=== PATIENT | female | born 1955 | race Caucasian/White ===

== ENCOUNTER 2024-11-15 16:32 | Inpatient (IN) | payer MEDICARE ==
[2024-11-15] MEDS: MORPHINE SULFATE 4 MG/ML SYRINGE IVP STA (19:03)
[2024-11-15] MEDS ORDERED: NALOXONE 0.4 MG/ML 1 ML VIAL IV PRN (20:23)
--- NOTE | 2024-11-15 20:23 | ED ---
Lower Extremity Injury HPI - General Chief Complaint: Extremity Injury, Lower Stated Complaint: Fractured right leg Time Seen by Provider: 11/15/24 16:40 Source: EMS Mode of arrival: EMS - History of Present Illness Initial Comments: 69-year-old female with past medical history of COPD, arthritis who presents emergency department as a transfer from [facility]. Patient sustained a fall 2 days ago. She has been having right hip pain. She has been able to ambulate however its painful. She went into [facility] and had an x-ray completed which demonstrated no fracture. Due to the significance of the pain they did complete a CT. Demonstrates that the patient has a nondisplaced occult fracture of the greater trochanter. Patient is having difficulty with ambulation and therefore they wanted to get a faster orthopedic consult and therefore transported the patient here. She admits to pain with movement. She was given 4 mg of morphine for pain control which was helpful. She did have some knee pain and x-ray was performed of the knee which demonstrates no fracture. Patient has been ambulating with a 4 post cane. She denies hitting her head. No other injuries from the fall. Patient does not take any blood thinners. - Related Data Home Medications Medication Instructions Recorded Confirmed ALPRAZolam [Xanax] 0.5 mg PO TID 11/15/24 11/15/24 Acetaminophen-Codeine 300-30mg 1 tab PO BID@1300,1700 11/15/24 11/15/24 [Tylenol w/codeine #3] Acetaminophen-Codeine 300-30mg 2 tab PO DAILY 11/15/24 11/15/24 [Tylenol w/codeine #3] Fluticasone Propion/Salmeterol 1 puff INHALATION RT-BID 11/15/24 11/15/24 [Wixela 250-50 Inhub] Mometasone Furoate [Nasonex 50 MCG] 2 spr EA NOSTRIL DAILY 11/15/24 11/15/24 Allergies Allergy/AdvReac Type Severity Reaction Status Date / Time No Known Allergies Allergy Verified 11/15/24 20:32 Review of Systems ROS Statement: Those systems with pertinent positive or pertinent negative responses have been documented in the HPI. ROS Other: All systems not noted in ROS Statement are negative. Past Medical History Past Medical History: COPD Additional Past Medical History / Comment(s): Arthritis History of Any Multi-Drug Resistant Organisms: None Reported Past Surgical History: Orthopedic Surgery Additional Past Surgical History / Comment(s): R wrist surgery, bunion removal and R foot surgery, cataracts ad eyelid reduction, trigger finger procedure Past Psychological History: Anxiety Smoking Status: Current every day smoker Past Alcohol Use History: Occasional Past Drug Use History: None Reported General Exam General appearance: alert, in no apparent distress Head exam: Present: atraumatic, normocephalic, normal inspection Eye exam: Present: normal appearance, PERRL, EOMI. Absent: scleral icterus, conjunctival injection, periorbital swelling ENT exam: Present: normal exam, mucous membranes moist Neck exam: Present: normal inspection. Absent: tenderness, meningismus, lymphadenopathy Respiratory exam: Present: normal lung sounds bilaterally. Absent: respiratory distress, wheezes, rales, rhonchi, stridor Cardiovascular Exam: Present: regular rate, normal rhythm, normal heart sounds. Absent: systolic murmur, diastolic murmur, rubs, gallop, clicks GI/Abdominal exam: Present: soft, normal bowel sounds. Absent: distended, tenderness, guarding, rebound, rigid Extremities exam: Present: tenderness (To palpation of the right hip), normal capillary refill. Absent: pedal edema, joint swelling, calf tenderness Back exam: Present: normal inspection Neurological exam: Present: alert, oriented X3, CN II-XII intact Psychiatric exam: Present: normal affect, normal mood Skin exam: Present: warm, dry, intact, normal color. Absent: rash Course Vital Signs 11/15/24 11/15/24 11/15/24 16:40 19:02 21:30 Temperature 98.6 F Pulse Rate 67 73 67 Respiratory 18 18 18 Rate Blood Pressure 158/57 138/68 134/94 O2 Sat by Pulse 98 95 95 Oximetry 11/15/24 11/15/24 22:01 23:30 Temperature 97.5 F L Pulse Rate 72 79 Respiratory 18 16 Rate Blood Pressure 125/92 115/69 O2 Sat by Pulse 96 96 Oximetry Medical Decision Making - Medical Decision Making Was pt. sent in by a medical professional or institution (, PA, SCUBA DIVING INSTRUCTOR, urgent care, hospital, or [place] health care facility...) When possible be specific @ -Patient sent in from [facility] Did you speak to anyone other than the patient for history (EMS, parent, family, police, friend...)? What history was obtained from this source @ -Spoke with the transferring physician Did you review nursing and triage notes (agree or disagree)? Why? @ -I reviewed and agree with nursing and triage notes Were old charts reviewed (outside hosp., previous admission, EMS record, old EKG, old radiological studies, urgent care reports/EKG's, [place] health care facility records)? Report findings @ -I reviewed the CT from [facility] Differential Diagnosis (chest pain, altered mental status, abdominal pain women, abdominal pain men, vaginal bleeding, weakness, fever, dyspnea, syncope, headache, dizziness, GI bleed, back pain, seizure, CVA, palpatations, mental health, musculoskeletal)? @ -Differential Musculoskeletal Muscular strain, contusion, ligament sprain, fracture, arthritis, septic arthritis, bursitis, cellulitis, muscle spasm, nerve compression, DVT, arterial occlusion, herpes zoster, electrolyte abnormality, tumor.... This is not meant to be in all inclusive list EKG interpreted by me (3pts min.). @ -Not done X-rays interpreted by me (1pt min.). @ -None done CT interpreted by me (1pt min.). @ -None done U/S interpreted by me (1pt. min.). @ -None done What testing was considered but not performed or refused? (CT, X-rays, U/S, labs)? Why? @ -None What meds were considered but not given or refused? Why? @ -None Did you discuss the management of the patient with other professionals (professionals i.e. , PA, SCUBA DIVING INSTRUCTOR, lab, RT, psych nurse, social and human services assistant, sheeter helper, teacher, parachute officer, caseworker intake)? Give summary @ -Spoke with Dr. Mccollum. He states the patient can be nonweightbearing and follow-up in office for MRI. If patient is not capable of being nonweightbearing, the patient may be admitted. Was smoking cessation discussed for >3mins.? @ -No Was critical care preformed (if so, how long)? @ -No Were there social determinants of health that impacted care today? How? (Homelessness, low income, unemployed, alcoholism, drug addiction, transportation, low edu. Level, literacy, decrease access to med. care, assisted, rehab)? @ -No Was there de-escalation of care discussed even if they declined (Discuss DNR or withdrawal of care, Hospice)? DNR status @ -No What co-morbidities impacted this encounter? (DM, HTN, Smoking, COPD, CAD, Cancer, CVA, ARF, Chemo, Hep., AIDS, mental health diagnosis, sleep apnea, morbid obesity)? @ -None Was patient admitted / discharged? Hospital course, mention meds given and route, prescriptions, significant lab abnormalities, going to OR and other pertinent info. @ -Upon arrival patient seen and evaluated in hallway 11. Thorough history and physical exam was performed. I did review the transfer packet. I uploaded the images. I called and spoke with Dr. Mccollum who is on-call for orthopedics. He allows the patient to have 2 options. Patient may go home however has to be nonweightbearing. She will follow-up in office for MRI. Second choice is that if patient is not capable of being nonweightbearing that he can admit for MRI and surgery. Patient states that she cannot be nonweightbearing for 6 weeks therefore I did admit the patient to the hospital under Dr. Mccollum with medicine to consult. Undiagnosed new problem with uncertain prognosis? @ -No Drug Therapy requiring intensive monitoring for toxicity (Heparin, Nitro, Insulin, Cardizem)? @ -No Were any procedures done? @ -No Diagnosis/symptom? @ -Acute fall, right greater trochanter fracture Acute, or Chronic, or Acute on Chronic? @ -Acute Uncomplicated (without systemic symptoms) or Complicated (systemic symptoms)? @ -Complicated Side effects of treatment? @ -No Exacerbation, Progression, or Severe Exacerbation? @ -No Poses a threat to life or bodily function? How? (Chest pain, [place], [place], pneumonia, PE, COPD, DKA, ARF, appy, cholecystitis, CVA, Diverticulitis, Homicidal, Suicidal, threat to staff... and all critical care pts) @ -No - Lab Data Result diagrams: 11/16/24 20:16 11/16/24 03:13 Lab Results 11/16/24 11/16/24 Range/Units 03:13 03:13 WBC 7.0 (3.8-10.6) k/uL RBC 3.13 L (3.80-5.40) m/uL Hgb 11.6 (11.4-16.0) gm/dL Hct 33.4 L (34.0-46.0) % MCV 106.7 H (80.0-100.0) fL MCH 37.0 H (25.0-35.0) pg MCHC 34.7 (31.0-37.0) g/dL RDW 12.2 (11.5-15.5) % Plt Count 208 (150-450) k/uL MPV 7.6 Neutrophils % 57 % Lymphocytes % 28 % Monocytes % 11 % Eosinophils % 1 % Basophils % 0 % Neutrophils # 4.0 (1.3-7.7) k/uL Lymphocytes # 2.0 (1.0-4.8) k/uL Monocytes # 0.8 (0-1.0) k/uL Eosinophils # 0.1 (0-0.7) k/uL Basophils # 0.0 (0-0.2) k/uL Macrocytosis Slight Sodium 129 L (137-145) mmol/L Potassium 3.7 (3.5-5.1) mmol/L Chloride 93 L (98-107) mmol/L Carbon Dioxide 30 (22-30) mmol/L Anion Gap 6 mmol/L BUN 10 (7-17) mg/dL Creatinine 0.43 L (0.52-1.04) mg/dL Est GFR (CKD-EPI)AfAm >90 (>60 ml/min/1.73 sqM) Est GFR (CKD-EPI)NonAf >90 (>60 ml/min/1.73 sqM) Glucose 107 H (74-99) mg/dL Calcium 8.9 (8.4-10.2) mg/dL Disposition Clinical Impression: Right hip pain, Fall Disposition: ADMITTED IP TO THIS [facility] Condition: Stable Is patient prescribed a controlled substance at d/c from ED?: No Time of Disposition: 20:23 Decision to Admit Reason: Admit from EC Decision Date: 11/15/24 Decision Time: 20:23
[2024-11-15] MEDS: ALPRAZolam 0.5 MG TAB PO SCH (22:00)
[2024-11-16] MEDS: MORPHINE SULFATE 4 MG/ML SYRINGE IV PRN (00:59)
[2024-11-16 03:39] LABS: Basophils % (A) 0 %; Eosinophils # (A) 0.1 k/uL (0-0.7); Eosinophils % (A) 1 %; HCT 33.4 % (34.0-46.0); HGB 11.6 gm/dL (11.4-16.0); Lymphocytes % (A) 28 %; MCHC 34.7 g/dL (31.0-37.0); MCV 106.7 fL (80.0-100.0); Macrocytosis Slight; Mean Platelet Volume 7.6; Monocytes # (A) 0.8 k/uL (0-1.0); Monocytes % (A) 11 %; Neutrophils % (A) 57 %; Platelet Count 208 k/uL (150-450); RBC 3.13 m/uL (3.80-5.40); RDW 12.2 % (11.5-15.5)
[2024-11-16 03:48] LABS: African American GFR (CKD) >90 (>60 ml/min/1.73 sqM); Anion Gap 6 mmol/L; Blood Urea Nitrogen 10 mg/dL (7-17); Calcium 8.9 mg/dL (8.4-10.2); Carbon Dioxide 30 mmol/L (22-30); Chloride 93 mmol/L (98-107); Glucose 107 mg/dL (74-99); Non-African American GFR(CKD) >90 (>60 ml/min/1.73 sqM); Potassium 3.7 mmol/L (3.5-5.1); Sodium 129 mmol/L (137-145)
--- NOTE | 2024-11-16 08:16 | P.HPOR ---
History of Present Illness H&P Date: 11/16/24 is a very pleasant 69-year-old female who was transferred from [facility] with a right greater trochanter fracture. According to the patient she got up to use the restroom at 3 AM on Friday evening and fell. She had intractable pain and inability to ambulate on her right leg. X-rays and computed tomography scan showed a minimally displaced greater trochanter fracture. She was transferred to our facility. At the time of my evaluation the patient is complaining of isolated pain in her right hip. Past Medical History Past Medical History: COPD Additional Past Medical History / Comment(s): Arthritis History of Any Multi-Drug Resistant Organisms: None Reported Past Surgical History: Orthopedic Surgery Additional Past Surgical History / Comment(s): R wrist surgery, bunion removal and R foot surgery, cataracts ad eyelid reduction, trigger finger procedure Past Psychological History: Anxiety Smoking Status: Current every day smoker Past Alcohol Use History: Occasional Past Drug Use History: None Reported Medications and Allergies Home Medications Medication Instructions Recorded Confirmed Type ALPRAZolam [Xanax] 0.5 mg PO TID 11/15/24 11/15/24 History Acetaminophen-Codeine 300-30mg 1 tab PO BID@1300,1700 11/15/24 11/15/24 History [Tylenol w/codeine #3] Acetaminophen-Codeine 300-30mg 2 tab PO DAILY 11/15/24 11/15/24 History [Tylenol w/codeine #3] Fluticasone Propion/Salmeterol 1 puff INHALATION RT-BID 11/15/24 11/15/24 History [Wixela 250-50 Inhub] Mometasone Furoate [Nasonex 50 MCG] 2 spr EA NOSTRIL DAILY 11/15/24 11/15/24 History Allergies Allergy/AdvReac Type Severity Reaction Status Date / Time No Known Allergies Allergy Verified 11/15/24 20:32 Physical Examination estimated comfortably in bed. She is alert and oriented. She is able to answer questions. A focused exam of the right lower extremity was conducted. On inspection she has no open wounds over the right leg. There are no deformities. She is able to perform a straight leg raise. She has mild pain with passive range of motion of the hip. She has tenderness over the greater trochanter. Results x-rays and computed tomography scan show a minimally displaced greater trochanter fracture - Labs Labs: Abnormal Lab Results - Last 24 Hours (Table) 11/16/24 11/16/24 Range/Units 03:13 03:13 RBC 3.13 L (3.80-5.40) m/uL Hct 33.4 L (34.0-46.0) % MCV 106.7 H (80.0-100.0) fL MCH 37.0 H (25.0-35.0) pg Sodium 129 L (137-145) mmol/L Chloride 93 L (98-107) mmol/L Creatinine 0.43 L (0.52-1.04) mg/dL Glucose 107 H (74-99) mg/dL H & H 11/16/24 Range/Units 03:13 Hgb 11.6 (11.4-16.0) gm/dL Hct 33.4 L (34.0-46.0) % Result Diagrams: 11/16/24 03:13 11/16/24 03:13 Assessment and Plan Assessment: right greater trochanter fracture Plan: I outlined treatment options with the patient. If she has an isolated greater trochanter fracture A can be managed nonsurgically with protected weightbearing, a walker, and limited hip abduction. We will obtain an MRI to rule out intertrochanteric extension. If she does have intertrochanteric extension over 50% her treatment options would include non-operative with protected weightbearing for 6 weeks versus prophylactic stabilization with a gamma nail and immediate weightbearing. Final recommendations pending MRI which will hopefully be obtained this morning. Time with Patient: Greater than 30
[2024-11-16] MEDS: SYMBICORT 80-4.5 MCG INHALER INHALATION SCH (08:46)
[2024-11-16] MEDS: FLUTICASONE NASAL 50MCG/SPRAY 16GM BTL EA NOSTRIL SCH (10:04)
[2024-11-16] MEDS ORDERED: ALBUTEROL NEBULIZED 2.5 MG/3 ML INHALATION PRN (10:39)
[2024-11-16] MEDS ORDERED: ACETAMINOPHEN TAB 500 MG TAB PO PRN (10:40)
--- NOTE | 2024-11-16 12:10 | MR ---
EXAMINATION TYPE: MR hip RT wo con DATE OF EXAM: 11/16/2024 11:39 AM COMPARISON: Outside CT 11/15/2024 CLINICAL INDICATION: Female, 69 years old with history of greater trochanter fracture, pain TECHNIQUE: Multiplanar, multisequence images of the right hip were obtained without IV contrast. FINDINGS: There is a vertically oriented fracture involving the right greater trochanter extending down to the lateral aspect of the intertrochanteric region and some extension to the posterior cortex, reference axial image 13. No extension to the lesser trochanter. Anterior and lateral cortex appears to remain intact. There is associated osseous edema and prominent surrounding soft tissue swelling. Reactive small right hip joint effusion. Moderate degenerative change of the right hip. There is a mu ltilocular ganglion cyst measuring 3.1 x 2.7 cm lateral to the right acetabulum likely para labral cy st. The sacrum and SI joints as well as the pubic symphysis appear intact. IMPRESSION: 1. Nondisplaced, vertically oriented fracture involving the right greater trochanter extending down t o the lateral aspect of the intertrochanteric region and extending to the posterior cortex just above the level of the lesser trochanter. The anterior and lateral cortex appear to remain intact. 2. Surrounding soft tissue swelling. 3. Moderate right hip OA. A 3.1 x 2.7 cm multilocular ganglion cyst lateral to the acetabulum probabl y reflects a paralabral cyst. [facility], , 11/16/2024 12:08 PM
[2024-11-16 13:56] VITALS: BMI 16.0
--- NOTE | 2024-11-16 15:51 | P.CONS ---
History of Present Illness - Reason for Consult Consult date: 11/16/24 - History of Present Illness History of present illness: This is a 69-year-old female with past medical history significant for COPD, history of arthritis who was transferred to ED from [facility]. Patient had a fall about 2 days ago, started to have right hip pain which progressively got worse. Patient reported that she was able to walk but it was very painful. An x-ray and CT scan which showed nondisplaced occult fracture of the greater trochanter. Patient denied any fever, chills, chest pain, palpit ation, shortness breath, productive cough, sore throat, nausea vomiting diarrhea constipation abdominal pain dysuria urgency frequency weakness or numbness of extremities. Internal medicine consulted for medical management. Patient reported history of COPD, denied any cardiac history, diabetes or hypertension. Assessment and plan: Fall: Right greater trochanter fracture: Presented after a fall X-ray and CT scan showed nondisplaced occult fracture of greater trochanter MRI hip showed nondisplaced vertically oriented fracture involving the right greater trochanter extending down to the lateral aspect of the intertrochanteric region and extending to the posterior cortex just above the level of the lesser trochanter, surrounding soft tissue swelling, moderate osteoarthritis, multilocular ganglion cyst. Management per orthopedics Patient okay to proceed with surgery. COPD: Stable Continue home inhalers DVT prophylaxis Per orthopedics Monitor vital signs and labs Labs and medication were reviewed. Continue same treatment. Further recommendations as per clinical course of the patient REVIEW OF SYSTEMS: CONSTITUTIONAL: No fever, no malaise, no fatigue. HEENT: No recent visual problems or hearing problems. Denied any sore throat. CARDIOVASCULAR: No chest pain, orthopnea, PND, no palpitations, no syncope. PULMONARY: No shortness of breath, no cough, no hemoptysis. GASTROINTESTINAL: No diarrhea, no nausea, no vomiting, no abdominal pain. NEUROLOGICAL: No headaches, no weakness, no numbness. HEMATOLOGICAL: Denies any bleeding or petechiae. GENITOURINARY: Denies any burning micturition, frequency, or urgency. MUSCULOSKELETAL/RHEUMATOLOGICAL: Denies any joint pain, swelling, or any muscle pain. Right hip lateral tenderness. ENDOCRINE: Denies any polyuria or polydipsia. The rest of the 14-point review of systems is negative. PHYSICAL EXAMINATION: GENERAL: The patient is A&O x3, NAD HEENT: EOMI, Sclerae anicteric, Moist Mucous membranes Neck: Supple, Non tender, No JVD PULMONARY: Equal breath souds B/L, No wheezing, No crackles. CARDIOVASCULAR: S1, S2 present. No murmurs, rubs, or gallops. ABDOMEN: Soft, nontender, nondistended, normoactive bowel sounds. No guarding or rebound tenderness. MUSCULOSKELETAL: No edema, No cyanosis. No clubbing. Normal ROM. Intact peripheral pulses. Complains of right hip pain. NEUROLOGICAL: CN 2-12 grossly intact. No FND Dictation was produced using [employer] dictation software. please excuse any grammatical, word or spelling errors. Past Medical History Past Medical History: COPD Additional Past Medical History / Comment(s): Arthritis History of Any Multi-Drug Resistant Organisms: None Reported Past Surgical History: Orthopedic Surgery Additional Past Surgical History / Comment(s): R wrist surgery, bunion removal and R foot surgery, cataracts ad eyelid reduction, trigger finger procedure Past Psychological History: Anxiety Smoking Status: Current every day smoker Past Alcohol Use History: Occasional Past Drug Use History: None Reported Medications and Allergies Home Medications Medication Instructions Recorded Confirmed Type ALPRAZolam [Xanax] 0.5 mg PO TID 11/15/24 11/15/24 History Acetaminophen-Codeine 300-30mg 1 tab PO BID@1300,1700 11/15/24 11/15/24 History [Tylenol w/codeine #3] Acetaminophen-Codeine 300-30mg 2 tab PO DAILY 11/15/24 11/15/24 History [Tylenol w/codeine #3] Fluticasone Propion/Salmeterol 1 puff INHALATION RT-BID 11/15/24 11/15/24 History [Wixela 250-50 Inhub] Mometasone Furoate [Nasonex 50 MCG] 2 spr EA NOSTRIL DAILY 11/15/24 11/15/24 History Allergies Allergy/AdvReac Type Severity Reaction Status Date / Time No Known Allergies Allergy Verified 11/15/24 20:32 Physical Exam Vitals: Vital Signs Temp Pulse Pulse Pulse Resp BP BP 11/16/24 13:35 98.0 F 67 16 138/72 11/16/24 09:30 71 15 11/16/24 07:18 98.1 F 71 15 130/72 11/16/24 00:08 97.9 F 68 16 11/15/24 23:30 97.5 F L 79 16 115/69 11/15/24 22:01 72 18 125/92 11/15/24 21:30 67 18 134/94 11/15/24 19:02 73 18 138/68 11/15/24 16:40 98.6 F 67 18 158/57 Pulse Ox 11/16/24 13:35 96 11/16/24 09:30 11/16/24 07:18 94 L 11/16/24 00:08 99 11/15/24 23:30 96 11/15/24 22:01 96 11/15/24 21:30 95 11/15/24 19:02 95 11/15/24 16:40 98 Intake and Output 11/16/24 11/16/24 11/16/24 06:59 14:59 22:59 Other: Voiding Method External Catheter Bedpan # Voids 1 Weight 37.195 kg 37.195 kg Results CBC & Chem 7: 11/16/24 03:13 11/16/24 03:13 Labs: Abnormal Lab Results - Last 24 Hours (Table) 11/16/24 11/16/24 Range/Units 03:13 03:13 RBC 3.13 L (3.80-5.40) m/uL Hct 33.4 L (34.0-46.0) % MCV 106.7 H (80.0-100.0) fL MCH 37.0 H (25.0-35.0) pg Sodium 129 L (137-145) mmol/L Chloride 93 L (98-107) mmol/L Creatinine 0.43 L (0.52-1.04) mg/dL Glucose 107 H (74-99) mg/dL
[2024-11-16] MEDS: IV FLUID CONTINUATION 1,000 ML IV ONE ×3 (16:44→19:33)
[2024-11-16] MEDS ORDERED: PROPOFOL 10 MG/ML 20 ML VIAL IV ONE (16:55)
[2024-11-16] MEDS ORDERED: KETAMINE HCL IN 0.9 % NACL 50 MG/5 ML SYRINGE ONE (16:55)
[2024-11-16] MEDS ORDERED: TRANEXAMIC 1,000 MG/100ML-NACL PREMIX BAG ONE (16:55)
[2024-11-16] MEDS ORDERED: MIDAZOLAM 2 MG/2 ML VIAL ONE (16:55)
[2024-11-16] MEDS: SODIUM CHLORIDE 0.9% 50 ML with ceFAZolin 2,000 MG IV ONE (16:59)
[2024-11-16] MEDS ORDERED: hydrOXYzine pamoate 25 MG CAP PO PRN (18:12)
[2024-11-16] MEDS ORDERED: Acetaminophen-Codeine 300-30mg TAB PO PRN (18:12)
[2024-11-16] MEDS ORDERED: HYDROcodone/APAP 5-325MG 1 EACH TAB PO PRN (18:12)
[2024-11-16] MEDS ORDERED: NALOXONE 0.4 MG/ML 1 ML VIAL IV PRN (18:12)
[2024-11-16] MEDS ORDERED: HYDROmorphone 0.5 MG/0.5 ML SYRINGE IVP PRN ×2 (18:12)
[2024-11-16] MEDS ORDERED: ACETAMINOPHEN TAB 325 MG TAB PO PRN (18:12)
[2024-11-16] MEDS ORDERED: ONDANSETRON 4 MG TAB PO PRN (18:17)
--- NOTE | 2024-11-16 18:35 | P.OP ---
Date of Procedure: 11/16/24 Preoperative Diagnosis: right greater trochanter fracture with intertrochanteric extension greater than 50% Postoperative Diagnosis: same Procedure(s) Performed: operative fixation of right intertrochanteric hip fracture with short intramedullary hip screw Anesthesia: spinal Surgeon: Tyrone Mccollum Geospatial Specialist #1: Kirt Lino Estimated Blood Loss (ml): 100 IV fluids (ml): 500 Pathology: none sent Condition: stable Disposition: PACU Indications for Procedure: the patient is a very pleasant 69-year-old female who was transferred to our facility from [facility] with a right greater trochanter fracture seen on computed tomography scan. I recommended getting an MRI which showed intertrochanteric extension across the posterior intertrochanteric region to the lesser trochanter. I discussed the results in person with the patient. I offered both nonoperative and operative treatment. We discussed that nonoperative treatment would require protected weightbearing and serial x-rays but would avoid surgery. We discussed that surgical stabilization with a short gamma nail would allow immediate weightbearing as tolerated but would require surgery. The patient stated she would have a difficult time protecting her weightbearing and requested operative stabilization. Given ample time to ask questions about both treatment options. We discussed the potential risks and complications of this surgical procedure including but certainly not limited to risks from anesthesia, superficial infection, deep infection, fracture nonunion, fracture malunion, hardware failure including broken hardware, varus collapse with lag screw cut out of the femoral head, progression of hip arthritis, limb length discrepancy, symptomatic hardware, need for further surgery including hardware removal and conversion to arthroplasty, DVT, PE, acute coronary event, pressure ulcers, urinary tract infection, failure to thrive, an inability to regain preinjury level of function, and possibly . The patient and their family understand these potential complications and also awknowledge that other less common complications are possible. They provided both their verbal and written consent to go forward with operative fixation of their hip fracture with an intramedullary hip screw. Description of Procedure: The patient was identified in preoperative holding and the correct operative extremity was marked with my initials. I reviewed the consent form with the patient and their family and all of their questions were answered. The patient was then brought back to the operating room by anesthesia. Anesthesia, preoperative antibiotics, and tranexamic acid were given by the anesthesia team while on the [facility]. Both ankles were padded with webril and boots for the Lily table were applied. The patient was then carefully transferred onto the Lily table. A perineal post was immediately placed. The contralateral arm was secured on a well-padded arm fowler. The ipsilateral arm was draped across the chest and secured with a pillow, foam, and paper tape to allow access to the proximal femur. Nonsterile drapes were applied to the operative extremity. The height of the table was elevated and the contralateral extremity was dropped towards the floor to facilitate imaging. A timeout was performed identifying the correct patient, operative extremity, and procedure. Fluoroscopy was brought in to assess the fracture. A provisional reduction was performed using longitudinal traction, adduction, and internal rotation. An AP and lateral view were obtained to assess the reduction. The operative extremity was then prepped and draped in the standard sterile fashion. A straight incision was made at the tip of the greater trochanter and extended proximally for 3 cm. Skin and subcutaneous tissues were incised sharply. The underlying fascia was incised in line with the skin incision. An awl was placed just medial to the tip of the greater trochanter on the AP view and co linear with the canal on the lateral view. A 3.2 mm guide pin was then advanced into the proximal femur. The position of the guidepin was verified with fluoroscopy. An opening reamer and soft tissue cannula were placed over the guidepin and used to open the proximal femur to the level of the lesser trochanter. The 3.2 mm guide pin and opening reamer were removed. A short gamma nail was dispensed, hooked up to the targeting arm and I verified that the trochar through the targeting arm lined up with the slots on the nail. The nail was then impacted into the proximal femur until the appropriate depth had been reached. A small stab incision was made over the lateral aspect of the femur using the targeting arm as a reference for the lag screw. Incision was carried down to the skin and fascia down to the lateral cortex of the femur. The trocar was then placed up to the lateral cortex of the femur and a guidepin was placed in the low center position on the AP view and centered in the femoral head on the lateral view. Once the position of the guidewire was verified, we reamed to appropriate depth and placed a lag screw over the guidewire and into the femoral head. The position of the lag screw was assessed with fluoroscopy. The guidewire was then removed from the femoral head. The set screw was placed proximally, brought fully down and then released a quarter turn to allow compression. A final stab incision was made over the lateral femur at the site of the distal interlocking screw, again using the targeting arm as a reference. The trocar and sleeve were placed to the lateral cortex of the femur. We then drilled and placed a distal interlocking screw. Final fluoroscopic images were taken showing excellent reduction of the fracture and appropriate position of th e implants. All wounds were thoroughly irrigated and closed in layers. Sterile dressings were applied. The drapes were taken down, the patient was transferred off the Lily table, and was brought to recovery having tolerated the procedure well. Kirt Lino PA-C was required as a skilled retirement assistant due to the complexity of surgery for patient positioning, draping, retraction, reduction of fracture, placement of hardware, closure of wounds, and application of dressings. PLAN: The patient can weight-bear as tolerated on their operative extremity. 2 doses of postoperative antibiotics. DVT prophylaxis with aspirin 81 mg twice a day starting the day of surgery. Dressing change on postoperative day #2. Appreciate Internal Medical assistance with perioperative medical management. Discharge planning in process.
--- NOTE | 2024-11-16 18:39 | XR ---
EXAMINATION TYPE: XR Hip Complete RT, FL guidance operating room DATE OF EXAM: 11/16/2024 6:22 PM COMPARISON: Chest radiographs from CLINICAL INDICATION: Female, 69 years old with history of RIGHT HIP NAIL, , FLUOROSCOPY RT HIP NAIL. 1 MIN 32 SECS FL. 2.4599 DAP. 4 intraoperative images demonstrating placement of intramedullary nail with hip screw fixation across the patient's greater trochanter intertrochanteric fracture. [facility], , 11/16/2024 6:37 PM
[2024-11-16] MEDS: ONDANSETRON 4 MG/2 ML VIAL IVP ONE (20:19)
[2024-11-16] MEDS: LACTATED RINGERS 1,000 ML IV SCH (20:19)
[2024-11-16] MEDS: DEXAMETHASONE SOD PHOSPHATE 4 MG/ML 1 ML VIAL IV ONE (20:19)
[2024-11-16] MEDS: SODIUM CHLORIDE 0.9% 1,000 ML IV ONE (20:20)
[2024-11-16 20:41] LABS: Basophils % (A) 0 %; Eosinophils # (A) 0.1 k/uL (0-0.7); Eosinophils % (A) 1 %; HCT 30.5 % (34.0-46.0); HGB 10.2 gm/dL (11.4-16.0); Lymphocytes # (A) 2.2 k/uL (1.0-4.8); Lymphocytes % (A) 26 %; MCH 36.5 pg (25.0-35.0); MCHC 33.4 g/dL (31.0-37.0); MCV 109.5 fL (80.0-100.0); Macrocytosis Moderate; Mean Platelet Volume 7.2; Monocytes # (A) 0.7 k/uL (0-1.0); Monocytes % (A) 8 %; Neutrophils # (A) 5.3 k/uL (1.3-7.7); Neutrophils % (A) 62 %; Platelet Count 224 k/uL (150-450); RBC 2.79 m/uL (3.80-5.40); RDW 11.8 % (11.5-15.5); WBC 8.5 k/uL (3.8-10.6)
[2024-11-16] MEDS: ASPIRIN 81 MG PO SCH (20:48)
[2024-11-16] MEDS: HYDROmorphone 0.5 MG/0.5 ML SYRINGE IVP PRN (20:48)
[2024-11-16] MEDS: HYDROcodone/APAP 10-325MG 1 EACH TAB PO PRN (22:32)
[2024-11-16] MEDS: SENNOSIDES-DOCUSATE SODIUM 1 EACH TAB PO SCH (22:33)
[2024-11-17] MEDS: PANTOPRAZOLE 40 MG TABLET PO SCH (06:28)
[2024-11-17] MEDS ORDERED: HYDROmorphone 0.5 MG/0.5 ML SYRINGE IVP PRN (07:00)
--- NOTE | 2024-11-17 09:41 | P.PN ---
Subjective Progress Note Date: 11/17/24 patient is doing relatively well this morning. She is complaining of moderate pain in her right thigh. She says her right thigh appears slightly swollen to her. She's been up several times to go to the bathroom. She has no other complaints. Objective - Vital Signs Vital signs: Vital Signs Temp 98.0 F 11/17/24 07:30 Pulse 83 11/17/24 08:00 Resp 16 11/17/24 08:00 BP 145/64 11/17/24 07:30 Pulse Ox 96 11/17/24 07:30 FiO2 Intake & Output 11/16/24 11/17/24 11/17/24 18:59 06:59 18:59 Intake Total 1100 50 Output Total 100 Balance 1000 50 Weight 37.195 kg Intake: IV 1100 50 Output: Estimated Blood Loss 100 Other: Voiding Method Bedpan Bedpan # Voids 2 1 # Bowel Movements 0 1 - Exam the patient is up in a chair at bedside. She is alert and able to answer questions. Focused exam of the right leg was conducted. There is mild swelling throughout the thigh area her surgical dressings are in place with no drainage or strike through. Her thigh is soft and compressible. She is able to perform a straight leg raise. Femoral nerve function is intact. She is able to actively plantarflex and dorsiflex her ankle and her toes. - Labs CBC & Chem 7: 11/16/24 20:16 11/16/24 03:13 Labs: Abnormal Lab Results - Last 24 Hours (Table) 11/16/24 Range/Units 20:16 RBC 2.79 L (3.80-5.40) m/uL Hgb 10.2 L (11.4-16.0) gm/dL Hct 30.5 L (34.0-46.0) % MCV 109.5 H (80.0-100.0) fL MCH 36.5 H (25.0-35.0) pg Assessment and Plan Assessment: postoperative day #1 status post right hip gamma nail for greater trochanter fracture with complete intertrochanteric extension Plan: 1. WBAT right lower extremity, up with assistance and a walker 2. 2 doses postoperative antibiotics 3. DVT prophylaxis with aspirin 81 mg twice a day 4. Leave surgical dressing in place 5. Appreciate internal medicine's assistance with preoperative medical management 6. Disposition: discharge home versus rehab pending evaluation by physical therapy, likely 1-2 days
--- NOTE | 2024-11-17 15:36 | P.PN ---
Subjective Progress Note Date: 11/17/24 Interval History: History of present illness: This is a 69-year-old female with past medical history significant for COPD, history of arthritis who was transferred to ED from [facility]. Patient had a fall about 2 days ago, started to have right hip pain which progressively got worse. Patient reported that she was able to walk but it was very painful. An x-ray and CT scan which showed nondisplaced occult fracture of the greater trochanter. Patient denied any fever, chills, chest pain, palpitation, shortness breath, productive cough, sore throat, nausea vomiting diarrhea constipation abdominal pain dysuria urgency frequency weakness or numbness of extremities. Internal medicine consulted for medical management. Patient reported history of COPD, denied any cardiac history, diabetes or hypertension. 11/17/24--patient was seen and examined today. No issues overnight. Pain is con trolled. Vital stable. Pain is controlled. Patient underwent ORIF yesterday. Awaiting PT/OT evaluation. Assessment and plan: Fall: Right greater trochanter fracture: Presented after a fall X-ray and CT scan showed nondisplaced occult fracture of greater trochanter MRI hip showed nondisplaced vertically oriented fracture involving the right greater trochanter extending down to the lateral aspect of the intertrochanteric region and extending to the posterior cortex just above the level of the lesser trochanter, surrounding soft tissue swelling, moderate osteoarthritis, multilocular ganglion cyst. Management per orthopedics- s/p ORIF PT/OT consult. Bowel/bladder protocol. COPD: Stable Continue home inhalers DVT prophylaxis Per orthopedics Monitor vital signs and labs Labs and medication were reviewed. Continue same treatment. Further recommendations as per clinical course of the patient REVIEW OF SYSTEMS: CONSTITUTIONAL: No fever, no malaise, no fatigue. HEENT: No recent visual problems or hearing problems. Denied any sore throat. CARDIOVASCULAR: No chest pain, orthopnea, PND, no palpitations, no syncope. PULMONARY: No shortness of breath, no cough, no hemoptysis. GASTROINTESTINAL: No diarrhea, no nausea, no vomiting, no abdominal pain. NEUROLOGICAL: No headaches, no weakness, no numbness. HEMATOLOGICAL: Denies any bleeding or petechiae. GENITOURINARY: Denies any burning micturition, frequency, or urgency. MUSCULOSKELETAL/RHEUMATOLOGICAL: Denies any joint pain, swelling, or any muscle pain. Right hip--dressing C/D/I. ENDOCRINE: Denies any polyuria or polydipsia. The rest of the 14-point review of systems is negative. PHYSICAL EXAMINATION: GENERAL: The patient is A&O x3, NAD HEENT: EOMI, Sclerae anicteric, Moist Mucous membranes Neck: Supple, Non tender, No JVD PULMONARY: Equal breath souds B/L, No wheezing, No crackles. CARDIOVASCULAR: S1, S2 present. No murmurs, rubs, or gallops. ABDOMEN: Soft, nontender, nondistended, normoactive bowel sounds. No guarding or rebound tenderness. MUSCULOSKELETAL: No edema, No cyanosis. No clubbing. Normal ROM. Intact peripheral pulses. Complains of right hip pain. NEUROLOGICAL: CN 2-12 grossly intact. No FND Dictation was produced using [employer] dictation software. please excuse any grammatical, word or spelling errors. Objective - Vital Signs Vital signs: Vital Signs Temp 98.0 F 11/17/24 07:30 Pulse 83 11/17/24 08:00 Resp 16 11/17/24 08:00 BP 145/64 11/17/24 07:30 Pulse Ox 96 11/17/24 07:30 FiO2 Intake & Output 11/16/24 11/17/24 11/17/24 18:59 06:59 18:59 Intake Total 1100 50 Output Total 100 Balance 1000 50 Weight 37.195 kg Intake: IV 1100 50 Output: Estimated Blood Loss 100 Other: Voiding Method Bedpan Bedpan # Voids 2 1 1 # Bowel Movements 0 1 - Labs CBC & Chem 7: 11/16/24 20:16 11/16/24 03:13 Labs: Abnormal Lab Results - Last 24 Hours (Table) 11/16/24 Range/Units 20:16 RBC 2.79 L (3.80-5.40) m/uL Hgb 10.2 L (11.4-16.0) gm/dL Hct 30.5 L (34.0-46.0) % MCV 109.5 H (80.0-100.0) fL MCH 36.5 H (25.0-35.0) pg
[2024-11-17 20:47] LABS: Appearance,Urine Clear (Clear); Bilirubin,Urine Negative (Negative); Blood,Urine Negative (Negative); Color,Urine Colorless; Glucose,Urine (UA) Negative (Negative); Ketones,Urine Negative (Negative); Leukocyte Esterase,Urine Negative (Negative); Nitrite,Urine Negative (Negative); PH, Urine 6.5 (5.0-8.0); Protein,Urine Negative (Negative); Specific Gravity,Urine 1.005 (1.001-1.035); Urobilinogen,Urine <2.0 mg/dL (<2.0)
--- NOTE | 2024-11-18 08:17 | P.PN ---
Subjective Progress Note Date: 11/18/24 11/17/2024: The patient is doing relatively well this morning. She is complaining of moderate pain in her right thigh. She says her right thigh appears slightly swollen to her. She's been up several times to go to the bathroom with assistance. She has no other complaints. 11/18/2024 progress: No acute events overnight per patient. Patient continues to have moderate pain in her operative right thigh. Patient states she has been up several times with assistance and ambulated to bathroom. No new complaints today. Objective - Vital Signs Vital signs: Vital Signs Temp 98.0 F 11/18/24 01:00 Pulse 102 H 11/18/24 01:00 Resp 16 11/18/24 01:00 BP 146/62 11/18/24 01:00 Pulse Ox 93 L 11/18/24 01:00 FiO2 Intake & Output 11/17/24 11/18/24 11/18/24 18:59 06:59 18:59 Intake Total 1050 Balance 1050 Intake: Intake, IV Titration 400 Amount Sodium Chloride 0.9% 1, 400 000 ml @ 50 mls/hr IV . Q20H ONE Rx#:[id number] Oral 650 Other: Voiding Method Bedpan # Voids 1 4 - Exam Patient was examined at bedside. Patient is resting comfortably in bed. No apparent distress. They are awake, alert and able to answer questions. On inspection the surgical hip dressing dressings are intact, there is no drainage or strikethrough. The skin surrounding the dressings are free of erythema. There is mild swelling in the operative thigh. Operative femoral nerve function is intact. The patient is able to perform a straight leg raise. The operative calf is soft to compression. The patient is able to actively plantarflex and dorsiflex their operative ankle and toes. - Labs CBC & Chem 7: 11/16/24 20:16 11/16/24 03:13 Assessment and Plan Assessment: postoperative day # 2 status post right hip gamma nail for greater trochanter fracture with complete intertrochanteric extension Plan: 1. WBAT right lower extremity, up with assistance and a walker 2. 2 doses postoperative antibiotics 3. DVT prophylaxis with aspirin 81 mg twice a day 4. Leave surgical dressings in place 5. Appreciate internal medicine's assistance with preoperative medical management Will discuss with nursing team to have patient reevaluated by physical therapy for recommendation on disposition. Disposition: discharge home versus rehab pending evaluation by physical therapy, likely tomorrow. Dictation was produced using [employer] dictation software, please excuse any grammatical, word or spelling errors.
--- NOTE | 2024-11-18 15:01 | P.PN ---
Subjective Interval History: History of present illness: This is a 69-year-old female with past medical history significant for COPD, history of arthritis who was transferred to ED from [facility]. Patient had a fall about 2 days ago, started to have right hip pain which progressively got worse. Patient reported that she was able to walk but it was very painful. An x-ray and CT scan which showed nondisplaced occult fracture of the greater trochanter. Patient denied any fever, chills, chest pain, palpitation, shortness breath, productive cough, sore throat, nausea vomiting diarrhea constipation abdominal pain dysuria urgency frequency weakness or numbness of extremities. Internal medicine consulted for medical management. Patient reported history of COPD, denied any cardiac history, diabetes or hypertension. 11/17/24--patient was seen and examined today. No issues overnight. Pain is controlled. Vital stable. Pain is controlled. Patient underwent ORIF yesterday. Awaiting PT/OT evaluation. 11/18--patient was seen and examined today. No issues overnight. Pain is controlled. Vitals are stable. Awaiting placement to subacute rehab. Assessment and plan: Fall: Right greater trochanter fracture: Presented after a fall X-ray and CT scan showed nondisplaced occult fracture of greater trochanter MRI hip showed nondisplaced vertically oriented fracture involving the right greater trochanter extending down to the lateral aspect of the intertrochanteric region and extending to the posterior cortex just above the level of the lesser trochanter, surrounding soft tissue swelling, moderate osteoarthritis, multilocular ganglion cyst. Management per orthopedics- s/p ORIF PT/OT consult. Bowel/bladder protocol. COPD: Stable Continue home inhalers DVT prophylaxis Per orthopedics Disposition: Anticipate subacute rehab Monitor vital signs and labs Labs and medication were reviewed. Continue same treatment. Further recommendations as per clinical course of the patient REVIEW OF SYSTEMS: CONSTITUTIONAL: No fever, no malaise, no fatigue. HEENT: No recent visual problems or hearing problems. Denied any sore throat. CARDIOVASCULAR: No chest pain, orthopnea, PND, no palpitations, no syncope. PULMONARY: No shortness of breath, no cough, no hemoptysis. GASTROINTESTINAL: No diarrhea, no nausea, no vomiting, no abdominal pain. NEUROLOGICAL: No headaches, no weakness, no numbness. HEMATOLOGICAL: Denies any bleeding or petechiae. GENITOURINARY: Denies any burning micturition, frequency, or urgency. MUSCULOSKELETAL/RHEUMATOLOGICAL: Denies any joint pain, swelling, or any muscle pain. Right hip--dressing C/D/I. ENDOCRINE: Denies any polyuria or polydipsia. The rest of the 14-point review of systems is negative. PHYSICAL EXAMINATION: GENERAL: The patient is A&O x3, NAD HEENT: EOMI, Sclerae anicteric, Moist Mucous membranes Neck: Supple, Non tender, No JVD PULMONARY: Equal breath souds B/L, No wheezing, No crackles. CARDIOVASCULAR: S1, S2 present. No murmurs, rubs, or gallops. ABDOMEN: Soft, nontender, nondistended, normoactive bowel sounds. No guarding or rebound tenderness. MUSCULOSKELETAL: No edema, No cyanosis. No clubbing. Normal ROM. Intact peripheral pulses. Complains of right hip pain. NEUROLOGICAL: CN 2-12 grossly intact. No FND Dictation was produced using [employer] dictation software. please excuse any grammatical, word or spelling errors. Objective - Vital Signs Vital signs: Vital Signs Temp 97.5 F L 11/18/24 13:53 Pulse 78 11/18/24 13:53 Resp 18 11/18/24 13:53 BP 113/68 11/18/24 13:53 Pulse Ox 99 11/18/24 13:53 FiO2 Intake & Output 11/17/24 11/18/24 11/18/24 18:59 06:59 18:59 Intake Total 1050 Balance 1050 Intake: Intake, IV Titration 400 Amount Sodium Chloride 0.9% 1, 400 000 ml @ 50 mls/hr IV . Q20H ONE Rx#:[id number] Oral 650 Other: Voiding Method Bedpan # Voids 1 4 - Labs CBC & Chem 7: 11/16/24 20:16 11/16/24 03:13
[2024-11-18] MEDS: polyethylene glycoL 3350 17 GM POWD.PACK PO PRN (15:05)
[2024-11-18 18:45] LABS: Basophils % (A) 1 %; Eosinophils # (A) 0.1 k/uL (0-0.7); Eosinophils % (A) 1 %; HCT 22.5 % (34.0-46.0); Lymphocytes % (A) 25 %; MCH 36.7 pg (25.0-35.0); MCHC 33.9 g/dL (31.0-37.0); MCV 108.3 fL (80.0-100.0); Macrocytosis Moderate; Mean Platelet Volume 6.9; Monocytes # (A) 0.9 k/uL (0-1.0); Monocytes % (A) 12 %; Neutrophils # (A) 4.7 k/uL (1.3-7.7); Neutrophils % (A) 59 %; Platelet Count 239 k/uL (150-450); RBC 2.08 m/uL (3.80-5.40); RDW 11.8 % (11.5-15.5); WBC 7.9 k/uL (3.8-10.6)
[2024-11-18 18:46] LABS: HGB 7.6 gm/dL (11.4-16.0)
--- NOTE | 2024-11-19 11:57 | P.PN ---
Subjective Interval History: History of present illness: This is a 69-year-old female with past medical history significant for COPD, history of arthritis who was transferred to ED from [facility]. Patient had a fall about 2 days ago, started to have right hip pain which progressively got worse. Patient reported that she was able to walk but it was very painful. An x-ray and CT scan which showed nondisplaced occult fracture of the greater trochanter. Patient denied any fever, chills, chest pain, palpitation, shortness breath, productive cough, sore throat, nausea vomiting diarrhea constipation abdominal pain dysuria urgency frequency weakness or numbness of extremities. Internal medicine consulted for medical management. Patient reported history of COPD, denied any cardiac history, diabetes or hypertension. 11/17/24--patient was seen and examined today. No issues overnight. Pain is controlled. Vital stable. Pain is controlled. Patient underwent ORIF yesterday. Awaiting PT/OT evaluation. 11/18--patient was seen and examined today. No issues overnight. Pain is controlled. Vitals are stable. Awaiting placement to subacute rehab. 11/19--patient was seen and examined today. No issues overnight. Patient's hemoglobin dropped to 7.6, no sign or symptom of active bleed. Likely postoperative. Repeat CBC to be checked by PCP in 1 week. Anticipate discharge to subacute rehab. Assessment and plan: Fall: Right greater trochanter fracture: Acute blood loss anemia: Postoperative Presented after a fall X-ray and CT scan showed nondisplaced occult fracture of greater trochanter MRI hip showed nondisplaced vertically oriented fracture involving the right greater trochanter extending down to the lateral aspect of the intertrochanteric region and extending to the posterior cortex just above the level of the lesser trochanter, surrounding soft tissue swelling, moderate osteoarthritis, multi locular ganglion cyst. Management per orthopedics- s/p ORIF PT/OT consult. Bowel/bladder protocol. COPD: Stable Continue home inhalers DVT prophylaxis Per orthopedics Disposition: Anticipate subacute rehab Monitor vital signs and labs Labs and medication were reviewed. Continue same treatment. Further recommendations as per clinical course of the patient REVIEW OF SYSTEMS: CONSTITUTIONAL: No fever, no malaise, no fatigue. HEENT: No recent visual problems or hearing problems. Denied any sore throat. CARDIOVASCULAR: No chest pain, orthopnea, PND, no palpitations, no syncope. PULMONARY: No shortness of breath, no cough, no hemoptysis. GASTROINTESTINAL: No diarrhea, no nausea, no vomiting, no abdominal pain. NEUROLOGICAL: No headaches, no weakness, no numbness. HEMATOLOGICAL: Denies any bleeding or petechiae. GENITOURINARY: Denies any burning micturition, frequency, or urgency. MUSCULOSKELETAL/RHEUMATOLOGICAL: Denies any joint pain, swelling, or any muscle pain. Right hip--dressing C/D/I. ENDOCRINE: Denies any polyuria or polydipsia. The rest of the 14-point review of systems is negative. PHYSICAL EXAMINATION: GENERAL: The patient is A&O x3, NAD HEENT: EOMI, Sclerae anicteric, Moist Mucous membranes Neck: Supple, Non tender, No JVD PULMONARY: Equal breath souds B/L, No wheezing, No crackles. CARDIOVASCULAR: S1, S2 present. No murmurs, rubs, or gallops. ABDOMEN: Soft, nontender, nondistended, normoactive bowel sounds. No guarding or rebound tenderness. MUSCULOSKELETAL: No edema, No cyanosis. No clubbing. Normal ROM. Intact perip heral pulses. Complains of right hip pain. NEUROLOGICAL: CN 2-12 grossly intact. No FND Dictation was produced using [employer] dictation software. please excuse any grammatical, word or spelling errors. Objective - Vital Signs Vital signs: Vital Signs Temp 98.1 F 11/19/24 07:14 Pulse 103 H 11/19/24 07:14 Resp 17 11/19/24 07:14 BP 112/71 11/19/24 07:14 Pulse Ox 91 L 11/19/24 07:14 FiO2 Intake & Output 11/18/24 11/19/24 11/19/24 18:59 06:59 18:59 Other: Voiding Method Toilet # Voids 1 2 - Labs CBC & Chem 7: 11/18/24 18:05 11/16/24 03:13 Labs: Abnormal Lab Results - Last 24 Hours (Table) 11/18/24 Range/Units 18:05 RBC 2.08 L (3.80-5.40) m/uL Hgb 7.6 L D (11.4-16.0) gm/dL Hct 22.5 L (34.0-46.0) % MCV 108.3 H (80.0-100.0) fL MCH 36.7 H (25.0-35.0) pg
--- NOTE | 2024-11-19 12:08 | P.DS ---
Providers Date of admission: 11/16/24 09:17 Attending physician: Tyrone Mccollum Consults: 11/15/24 20:23 Consult Physician Urgent Consulting Provider: Jaime Meier Consult Reason/Comments: copd, possible pre-op Do you want consulting provider notified?: Yes Primary care physician: Kat Duarte [facility] Course: This is a very pleasant 69-year-old female who was transferred from [facility] with a right greater trochanter fracture. According to the patient she got up to use the restroom at 3 AM on Friday evening and fell. She had intractable pain and inability to ambulate on her right leg. X-rays and computed tomography scan showed a minimally displaced greater trochanter fracture. She was transferred to our facility. An MRI was obtained here at [facility] which showed intertrochanteric extension across the posterior intertrochanteric region to the lesser trochanter. The patient had operative fixation of right intertrochanteric hip fracture with short intramedullary hip screw on 11/16/[address] Mccollum. The patient tolerated the procedure well. The patient was transferred to the orthopedic floor. Patient worked with physical therapy and they recommended short term rehab which I agree would benefit the patient. Patient was examined at bedside this morning. Patient is resting comfortably in a chair. No apparent distress. They are awake, alert and able to answer questions. On inspection there are three surgical hip dressings, all are intact, there is a dime size amount of strikethrough in the middle dressing. The skin surrounding the dressing is free of erythema. There is mild swelling in the operative thigh. Operative femoral nerve function is intact. The operative calf is soft to compression. The patient is able to actively plantarflex and dorsiflex their operative ankle and toes. Their operative foot appears well perfused with capillary refill under 2 seconds. Pain has been controlled with oral pain medication. Plan to discharge to rehab. Plan follow up in two weeks in our office. Please see med rec for a list of accurate medications. Plan leave surgical dressings in place for two weeks unless are saturated more than 50%. Plan follow up 2 weeks at our [facility] [address] [place] [address] Dr Phylicia Morales [place] [phone]. Assessment: postoperative day #3 status post right hip gamma nail for greater trochanter fracture with complete intertrochanteric extension right hip pain Patient Condition at Discharge: Stable Plan - Discharge Summary Discharge Rx Participant: No New Discharge Prescriptions: New HYDROcodone/APAP 5-325MG [Winfield 5] 1 - 2 each PO Q6HR PRN #48 tab PRN Reason: Pain Omeprazole 20 mg PO DAILY #30 tab Sennosides-Docusate Sodium [Senokot-S] 1 tab PO BID PRN #60 tablet PRN Reason: Constipation Ondansetron [Zofran] 4 mg PO Q6HR PRN #30 tab PRN Reason: Nausea Aspirin 81 mg PO BID #60 tab Acetaminophen Tab [Tylenol] 500 mg PO Q6HR PRN tab PRN Reason: Fever And/ Or Pain Albuterol Nebulized [Ventolin Nebulized] 2.5 mg INHALATION RT-QID PRN #1 inh PRN Reason: Shortness Of Breath Or Wheezing Continue ALPRAZolam [Xanax] 0.5 mg PO TID Acetaminophen-Codeine 300-30mg [Tylenol w/codeine #3] 2 tab PO DAILY Fluticasone Propion/Salmeterol [Wixela 250-50 Inhub] 1 puff INHALATION RT-BID Mometasone Furoate [Nasonex 50 MCG] 2 spr EA NOSTRIL DAILY Acetaminophen-Codeine 300-30mg [Tylenol w/codeine #3] 1 tab PO BID@1300,1700 Discharge Medication List ALPRAZolam [Xanax] 0.5 mg PO TID 11/15/24 [History] Acetaminophen-Codeine 300-30mg [Tylenol w/codeine #3] 1 tab PO BID@1300,1700 11/15/24 [History] Acetaminophen-Codeine 300-30mg [Tylenol w/codeine #3] 2 tab PO DAILY 11/15/24 [History] Fluticasone Propion/Salmeterol [Wixela 250-50 Inhub] 1 puff INHALATION RT-BID 11/15/24 [History] Mometasone Furoate [Nasonex 50 MCG] 2 spr EA NOSTRIL DAILY 11/15/24 [History] Acetaminophen Tab [Tylenol] 500 mg PO Q6HR PRN tab 11/19/24 [Rx] Albuterol Nebulized [Ventolin Nebulized] 2.5 mg INHALATION RT-QID PRN #1 inh 11/19/24 [Rx] Aspirin 81 mg PO BID #60 tab 11/19/24 [Rx] HYDROcodone/APAP 5-325MG [Winfield 5] 1 - 2 each PO Q6HR PRN #48 tab 11/19/24 [Rx] Omeprazole 20 mg PO DAILY #30 tab 11/19/24 [Rx] Ondansetron [Zofran] 4 mg PO Q6HR PRN #30 tab 11/19/24 [Rx] Sennosides-Docusate Sodium [Senokot-S] 1 tab PO BID PRN #60 tablet 11/19/24 [Rx] Follow up Appointment(s)/Referral(s): Kat Duarte MD [Primary Care Provider] - 1-2 days Tyrone Mccollum MD [Medical Doctor] - 2 Weeks Activity/Diet/Wound Care/Special Instructions: 1. Weight-bear as tolerated on your operative extremity unless instructed otherwise. Use a walker or other assistive device to ambulate. 2. Leave surgical dressing in place. If your dressing becomes saturated with blood, there is drainage, or the dressing becomes loose please contact the office. 3. It is okay to shower with your surgical dressing, but do not submerge in water (no hot tubs, bath's, swimming etc.) 4. Take your blood clot prevention medication as prescribed (aspirin, Eliquis, Xarelto, and Plavix are commonly prescribed medications for blood clot prev ention) 5. While taking Winfield or Percocet for pain take a stool softener (Ex: Colace) and drink lots of water. 6. Keep all follow-up appointments as scheduled. You will usually be seen in 1-2 weeks following surgery. 7. Please contact the office with any questions or concerns [phone] Discharge Disposition: TRANSFER TO SNF/ECF
[2024-11-19 13:13] VITALS: BP 119/63; PULSE 63; RESP 16; TEMP 98.4
== END 2024-11-19 13:56 | DRG 481 ==
LOC: EC 16:32 → 4SSUR 21:03 → OBSVTOIN 11-16 09:17
PROVIDERS: ADMIT Orthopaedic Surgery; ATTEND Orthopaedic Surgery
PROC: 0QS606Z Reposition Right Upper Femur with Intramedullary Internal Fixation Device, Open Approach (ICD-10-PCS; principal; 2024-11-16 11:15)
DX: S72.141A Displaced intertrochanteric fracture of right femur, initial encounter for closed fracture (principal); D62 Acute posthemorrhagic anemia; J44.9 Chronic obstructive pulmonary disease, unspecified; S72.111A Displaced fracture of greater trochanter of right femur, initial encounter for closed fracture; F17.210 Nicotine dependence, cigarettes, uncomplicated; M67.451 Ganglion, right hip; M16.11 Unilateral primary osteoarthritis, right hip; W19.XXXA Unspecified fall, initial encounter; Y92.009 Unspecified place in unspecified non-institutional (private) residence as the place of occurrence of the external cause; Z79.51 Long term (current) use of inhaled steroids; Z79.891 Long term (current) use of opiate analgesic; Z79.899 Other long term (current) drug therapy
CPT/HCPCS: 73502; 80048; 81003; 85025; 94640; 96374; 99285

== ENCOUNTER → 2025-01-14 | Outpatient (CLI) | payer MEDICARE ==
--- NOTE | 2025-01-14 10:43 | US ---
EXAMINATION TYPE: US venous doppler duplex LE RT DATE OF EXAM: 01/14/2025 10:23 AM COMPARISON: NONE CLINICAL INDICATION: Female, 69 years old with history of M79.89; very mild foot swelling, recent tot al rt hip, no h/o dvt TECHNIQUE: The lower extremity deep venous system is examined utilizing real time linear array sonog ana with graded compression, color doppler sonography, and spectral doppler. SIDE PERFORMED: Right FINDINGS: VESSELS IMAGED: Common Femoral Vein Deep Femoral Vein Greater Saphenous Vein * Femoral Vein Popliteal Vein Small Saphenous Vein * Proximal Calf Veins (* superficial vessels) office never answered when I called at 10:30, let pt go home Right Leg: Negative for DVT, Color Doppler imaging shows patency of the vessels. Spectral waveforms are within normal limits. IMPRESSION: No ultrasound evidence for deep venous thrombosis. [facility], , 01/14/2025 10:41 AM
== END | disposition home or self-care (01) ==
LOC: RADUSWWP 09:49
PROVIDERS: ATTEND Orthopaedic Surgery
DX: M79.89 Other specified soft tissue disorders (principal)